=== PATIENT | male | born 1955 | race Caucasian/White ===

== ENCOUNTER → 2019-12-31 | Outpatient (CLI) | payer MEDICARE, OTHER | LOC: COL.RAD 09:08 | DX: C61 Malignant neoplasm of prostate (principal) | CPT/HCPCS: A9503; Q9967 ==

== ENCOUNTER 2020-01-29 08:40 | Inpatient (IN) | payer MEDICARE ==
[~2020-01-29] VITALS: Ht 180.3 cm; Wt 79.4 kg
[2020-02-11] VITALS (12 sets, daily range): BP systolic 113–142; BP diastolic 68–94; PULSE 70–97; TEMP 97.9–98.3
[2020-02-11] MEDS ORDERED: PRINIVIL20 MG PO (06:14)
[2020-02-11] MEDS ORDERED: TYLENOL 500MG500 MG PO (06:15)
--- NOTE | 2020-02-11 11:55 | NUR ---
Patient arrived from PACU via bed. Patient is sleepy but rousable, is alert and oriented while awake. Post op checks initiated. Call light within reach, bed alarm on.
--- NOTE | 2020-02-11 19:02 | NUR ---
Patient resting in bed at this time. Patient remains alert and oriented. Patient tolerating clears well, denies nausea. Patient declines pain medications. Law remains in place, urine is bloody, clots have cleared. IVF continue per order. Patient denies needs, call light within reach.
--- NOTE | 2020-02-11 20:20 | NUR ---
Pt. laying in bed at this time. Pt. is A&OX3, assessment complete. IV to rt. wrist patent, IV fluids infusing per orders. Abd. lap incisions x4, cdi, low transverse incsion CDI. MOUNA drain with bloody drainage noted. Pt. denies pain or other needs, call light within reach.
[2020-02-12 03:36] VITALS: BP 126/73; PULSE 68; TEMP 97.5
[2020-02-12 06:36] LABS: HEMOGLOBIN 11.6 g/dl (13.5-18.0)
[2020-02-12 06:39] LABS: HEMATOCRIT 34.2 % (42.0-52.0)
[2020-02-12 06:57] LABS: CALCIUM 8.4 mg/dL (8.4-10.2); CREATININE, serum 0.93 (0.66-1.25); POTASSIUM 4.3 mmol/L (3.4-5.0)
[2020-02-12 07:53] VITALS: BP 159/87; PULSE 78; TEMP 97.8
--- NOTE | 2020-02-12 08:00 | NUR ---
Patient resting in bed at this time. Patient is alert and oriented, answers questions appropriately. Law remains in place draining keke urine with infrequent small clots/sediment. IVF continue per order. MOUNA drain in place, scant amount of bloody drainage in the bulb. Patient has ambulated in hallway once this morning with SBA. Patient denies pain or needs at this time, call light within reach.
--- NOTE | 2020-02-12 10:40 | NUR ---
Initial visit; Patient thanked Survey Instrument Operator for looking in on him and offering God's blessings.
[2020-02-12 11:48] VITALS: BP 126/86; PULSE 86; TEMP 98.2
--- NOTE | 2020-02-12 14:30 | NUR ---
MOUNA drain removed per order. One suture cut to pull drain. Patient tolerated procedure well, drain site dressed with gauze and ABD.
--- NOTE | 2020-02-12 14:45 | NUR ---
Discharge teaching completed. Discussed follow up appointments, medications, and instructions. Completed catheter care and leg bag teaching. Patient questions asked and answered. Patient denies further questions or needs. Patient escorted to ED entrance where he entered a private vehicle.
== END 2020-02-12 14:45 | disposition home or self-care (01) | DRG 707 ==
LOC: INPTSU 02-11 05:06 → SURG 02-11 07:30
PROVIDERS: ADMIT Urology
PROC: 07BC4ZZ Excision of Pelvis Lymphatic, Percutaneous Endoscopic Approach (ICD-10-PCS; 2020-02-11)
PROC: 8E0W4CZ Robotic Assisted Procedure of Trunk Region, Percutaneous Endoscopic Approach (ICD-10-PCS; 2020-02-11)
PROC: 0VT04ZZ Resection of Prostate, Percutaneous Endoscopic Approach (ICD-10-PCS; principal; 2020-02-11 07:30)
DX: C61 Malignant neoplasm of prostate (principal); E87.1 Hypo-osmolality and hyponatremia; I10 Essential (primary) hypertension; Z85.828 Personal history of other malignant neoplasm of skin
CPT/HCPCS: A4314; A9284; J0690; J1100; J1885; J2270; J2405; J2704; J3010; J7120